=== PATIENT | male | born 2005 | race Hispanic/Latino ===

== ENCOUNTER 2023-07-12 20:47 | Emergency (ER) | payer MEDICAID, OTHER ==
[~2023-07-12] VITALS: Ht 172.7 cm; Wt 64.9 kg
[2023-07-13 00:19] LABS: RAPID GROUP A STREP negative (NEGATIVE)
[2023-07-13 00:24] LABS: SARS-CoV-2, RNA, NAAT NEGATIVE SARS CoV-2 (NEGATIVE)
[2023-07-13 00:29] LABS: INFLUENZA TYPE A Negative For Type A (NEGATIVE); INFLUENZA TYPE B Negative For Type B (NEGATIVE)
[2023-07-13] MEDS ORDERED: IBUP-2070 PO (00:34)
[2023-07-13 00:48] VITALS: BP 132/68; PULSE 74; RESP 16; O2SAT 98
== END 2023-07-13 00:50 | disposition home or self-care (01) ==
LOC: EDH 20:47
DX: J00 Acute nasopharyngitis [common cold] (principal); Z20.822 Contact with and (suspected) exposure to COVID-19
CPT/HCPCS: 99283; 87635; 87880; 87804 ×2; C9803